=== PATIENT | female | born 1955 | race Two or more races ===

== ENCOUNTER 2019-08-28 14:32 | Emergency (ER) | payer OTHER ==
[~2019-08-28] VITALS: Ht 167.6 cm; Wt 53.5 kg
== END 2019-08-29 14:04 | disposition home or self-care (01) ==
LOC: ER 14:32
DX: G89.3 Neoplasm related pain (acute) (chronic) (principal); C78.7 Secondary malignant neoplasm of liver and intrahepatic bile duct; C54.8 Malignant neoplasm of overlapping sites of corpus uteri; R10.13 Epigastric pain; R10.11 Right upper quadrant pain; E86.0 Dehydration; E46 Unspecified protein-calorie malnutrition

== ENCOUNTER 2019-09-02 14:58 | Outpatient (CLI) | payer OTHER | END 2019-09-02 15:00 | disposition home or self-care (01) | LOC: T RESPIRAT 14:58 | DX: C54.8 Malignant neoplasm of overlapping sites of corpus uteri (principal); C78.7 Secondary malignant neoplasm of liver and intrahepatic bile duct; R06.09 Other forms of dyspnea; R06.01 Orthopnea ==